=== PATIENT | male | born 1945 | race Asian ===

== ENCOUNTER 2023-02-15 06:32 | Day surgery (SDC) | payer MEDICARE, OTHER ==
[~2023-02-15] VITALS: Ht 154.9 cm; Wt 60.0 kg
[2023-02-15] MEDS ORDERED: LIDOCAINE 4% 50 ML SOLUTION TP ONE (06:33)
[2023-02-15] MEDS ORDERED: BENZOCAINE 20% 50 MCG/SPRAY 57 GM TP ONE (06:33)
[2023-02-15] MEDS ORDERED: LIDOCAINE 2% 11 ML JELLY TP ONE (06:33)
[2023-02-15] MEDS ORDERED: FLUT1BLS10 IH (07:28)
[2023-02-15] MEDS ORDERED: ICOS1CAP PO (07:29)
[2023-02-15] MEDS ORDERED: LOSA-381 PO (07:30)
[2023-02-15] MEDS ORDERED: GABA-1181 PO (07:32)
[2023-02-15] MEDS ORDERED: SENN-160 PO (07:33)
[2023-02-15] MEDS ORDERED: METF-1211 PO (07:34)
[2023-02-15] MEDS ORDERED: TAMS0.4C34 PO (07:35)
[2023-02-15] MEDS ORDERED: MIDAZOLAM HCL 2 MG/2 ML VIAL ONE (08:12)
[2023-02-15] MEDS ORDERED: FentaNYL CITRATE PF 100 MCG/2 ML VIAL ONE (08:13)
[2023-02-15 08:36] LABS: GLUCOMETER DEV NAME(LOC) SDS.; GLUCOSE,POINT OF CARE 119 MG/DL (70-110)
[2023-02-15] MEDS ORDERED: SODIUM CHLORIDE 0.9% 1,000 ML IV ONE (08:45)
[2023-02-15] MEDS ORDERED: MethylPREDNISolone SOD SUCC 125 MG/2 ML VIAL ONE (08:56)
[2023-02-15 08:57] VITALS: PULSE 72; RESP 15; O2SAT 100
[2023-02-15] MEDS ORDERED: MethylPREDNISolone SOD SUCC 125 MG/2 ML VIAL IVP ONE (09:00)
== END 2023-02-15 11:00 | disposition home or self-care (01) ==
LOC: SURGERY 06:32
PROVIDERS: ATTEND Internal Medicine Critical Care Medicine
DX: J38.4 Edema of larynx (principal); B37.0 Candidal stomatitis; Z79.899 Other long term (current) drug therapy; E11.9 Type 2 diabetes mellitus without complications; Z98.890 Other specified postprocedural states
CPT/HCPCS: 31623; 82962; 87206; 87101; 87220; 87070; 88108; 31624; 71045; 87015; J3010; J2250; J2930; Q9967; Z7610